=== PATIENT | female | born 1940 | race Asian ===

== ENCOUNTER 2016-10-09 09:26 | Outpatient (CLI) | payer OTHER ==
[~2016-10-09 09:26] MED LIST: ACET-655 PO; ACET7.5T70 PO; ALLO300T23 PO; ATEN50TA36 PO; BENZ100C8 PO; CARB25TA29 PO; CEFD300C2 PO; CYCL10TA35 PO; FLUT0.05 NAS; GABA300C2 PO; HYDROCHLOROT50 MG PO; LEVO0.0218 PO; MOBIC7.5 M1 PO; MUCINEX600 MG OR; NEXIUM40 M1 PO; RANI150T78 PO; SIMV40TA57 PO; TRAM50TA PO
[2016-10-09 09:39] LABS: PLATELET COUNT 216 K/uL (152-353)
[2016-10-09 09:54] LABS: POTASSIUM 4.2 mmol/L (3.6-5.2); SODIUM 134 mmol/L (136-145)
== END 2016-10-09 19:20 | disposition home or self-care (01) ==
LOC: LABW 09:26
PROVIDERS: Specialist
DX: Z01.818 Encounter for other preprocedural examination (principal)
CPT/HCPCS: 36415; 80053; 85027

== ENCOUNTER 2016-12-21 13:22 | Outpatient (CLI) | payer OTHER ==
[2016-12-21 13:48] LABS: PLATELET COUNT 200 K/uL (152-353)
[2016-12-21 14:25] LABS: POTASSIUM 4.4 mmol/L (3.6-5.2); SODIUM 138 mmol/L (136-145)
== END 2016-12-21 21:06 | disposition home or self-care (01) ==
LOC: LAB 13:22
PROVIDERS: Nurse Practitioner Family
DX: I25.10 Atherosclerotic heart disease of native coronary artery without angina pectoris (principal); I10 Essential (primary) hypertension; E78.5 Hyperlipidemia, unspecified; E03.9 Hypothyroidism, unspecified; Z79.899 Other long term (current) drug therapy
CPT/HCPCS: 80053; 80061; 83036; 84439; 84443; 85027

== ENCOUNTER 2017-01-30 12:19 | Outpatient (CLI) | payer OTHER ==
[2017-01-30 12:43] LABS: PLATELET COUNT 254 K/uL (152-353)
[2017-01-30 13:41] LABS: POTASSIUM 4.6 mmol/L (3.6-5.2); SODIUM 136 mmol/L (136-145)
== END 2017-01-30 19:09 | disposition home or self-care (01) ==
LOC: LAB 12:19
PROVIDERS: Nurse Practitioner Family
DX: E78.5 Hyperlipidemia, unspecified (principal); Z79.899 Other long term (current) drug therapy; I10 Essential (primary) hypertension; I25.10 Atherosclerotic heart disease of native coronary artery without angina pectoris; E03.9 Hypothyroidism, unspecified
CPT/HCPCS: 80053; 80061; 82306; 82607; 83036; 84439; 84443; 85027

== ENCOUNTER 2017-08-13 08:51 | Outpatient (CLI) | payer OTHER | END 2017-08-13 10:00 | disposition home or self-care (01) | LOC: MAMMO 08:51 | DX: Z12.31 Encounter for screening mammogram for malignant neoplasm of breast (principal) ==

== ENCOUNTER 2017-09-11 08:52 | Outpatient (CLI) | payer OTHER | END 2017-09-11 19:24 | disposition home or self-care (01) | LOC: MAMMO 08:52 | DX: R92.8 Other abnormal and inconclusive findings on diagnostic imaging of breast (principal) ==

== ENCOUNTER 2017-09-29 19:28 | Outpatient (CLI) | payer OTHER ==
[2017-09-30] MEDS ORDERED: CLOPIDOGREL75 MG PO (01:04)
[2017-09-30] MEDS ORDERED: MAGNESIUM400 M1 PO (01:05)
[2017-09-30] MEDS ORDERED: PACERONE200 MG PO (01:06)
[2017-09-30] MEDS ORDERED: K-TAB20 MEQ PO (01:06)
[2017-09-30] MEDS ORDERED: AMLO2.5T PO (01:07)
[2017-09-30] MEDS ORDERED: COZAAR100 MG PO (01:08)
[2017-09-30] MEDS ORDERED: CARV12.5 PO (01:08)
[2017-09-30] MEDS ORDERED: TRAM50TA PO (01:11)
[2017-09-30] MEDS ORDERED: TYLENOL #4 (01:14)
== END 2017-09-29 19:33 | disposition short-term general hospital (02) ==
LOC: AMB 19:28
DX: M25.511 Pain in right shoulder (principal); M25.552 Pain in left hip; W01.0XXA Fall on same level from slipping, tripping and stumbling without subsequent striking against object, initial encounter; Y92.091 Bathroom in other non-institutional residence as the place of occurrence of the external cause
CPT/HCPCS: A0425; A0427

== ENCOUNTER 2017-09-29 19:38 | Inpatient (IN) | payer OTHER ==
[~2017-09-29] VITALS: Ht 162.6 cm; Wt 103.0 kg
[2017-09-29 19:44] VITALS: BP 140/92; TEMP 99.5
[2017-09-30 00:50] VITALS: BP 156/56; TEMP 98.9
[2017-09-30] MEDS ORDERED: CLOPIDOGREL75 MG PO (01:04)
[2017-09-30] MEDS ORDERED: MAGNESIUM400 M1 PO (01:05)
[2017-09-30] MEDS ORDERED: K-TAB20 MEQ PO (01:06)
[2017-09-30] MEDS ORDERED: PACERONE200 MG PO (01:06)
[2017-09-30] MEDS ORDERED: AMLO2.5T PO (01:07)
[2017-09-30] MEDS ORDERED: CARV12.5 PO (01:08)
[2017-09-30] MEDS ORDERED: COZAAR100 MG PO (01:08)
[2017-09-30] MEDS ORDERED: TRAM50TA PO (01:11)
[2017-09-30] MEDS ORDERED: TYLENOL #4 (01:14)
[2017-09-30 03:53] VITALS: BP 151/55; TEMP 99.1; Ht 162.6 cm; Wt 103.0 kg
[2017-09-30 08:00] VITALS: BP 171/74; TEMP 98.7
[2017-09-30 10:28] LABS: PLATELET COUNT 223 K/uL (152-353)
[2017-09-30 10:53] LABS: POTASSIUM 3.7 mmol/L (3.6-5.2); SODIUM 136 mmol/L (136-145)
[2017-09-30 12:00] VITALS: BP 148/62; TEMP 98.7
[2017-09-30 16:00] VITALS: BP 122/59; TEMP 98.3
[2017-09-30 20:00] VITALS: BP 108/40; TEMP 98.3
[2017-10-01] VITALS: BP 98/47; TEMP 98.7
[2017-10-01 04:00] VITALS: BP 102/42; TEMP 98.7
[2017-10-01 07:51] VITALS: BP 125/59; TEMP 99
[2017-10-01 08:43] LABS: PLATELET COUNT 196 K/uL (152-353)
[2017-10-01 08:56] LABS: POTASSIUM 3.9 mmol/L (3.6-5.2)
[2017-10-01 12:00] VITALS: BP 103/48; TEMP 97.9
[2017-10-01 15:55] VITALS: BP 122/50; TEMP 97.2
[2017-10-01 20:09] VITALS: BP 121/52; TEMP 98.3
[2017-10-02] VITALS: BP 137/74; TEMP 98.7
[2017-10-02 04:00] VITALS: BP 145/54; TEMP 98.4
[2017-10-02 04:44] LABS: PLATELET COUNT 230 K/uL (152-353)
[2017-10-02 08:00] VITALS: BP 137/56; TEMP 97.6
[2017-10-02 12:19] VITALS: BP 139/70; TEMP 98.5
[2017-10-02 16:01] VITALS: BP 135/71; TEMP 99.7
[2017-10-02 20:00] VITALS: BP 125/54; TEMP 99
[2017-10-03] VITALS: BP 135/52; TEMP 99.5
[2017-10-03 03:48] LABS: PLATELET COUNT 294 K/uL (152-353)
[2017-10-03 04:00] VITALS: BP 129/47; TEMP 98.9
[2017-10-03 05:46] LABS: POTASSIUM 3.9 mmol/L (3.6-5.2); SODIUM 131 mmol/L (136-145)
[2017-10-03 08:00] VITALS: BP 181/76; TEMP 98.7
[2017-10-03 12:00] VITALS: BP 147/57; TEMP 97.5
[2017-10-03 16:00] VITALS: BP 151/61; TEMP 99.6
[2017-10-03 20:00] VITALS: BP 155/62; TEMP 99
[2017-10-04] VITALS: BP 138/51; TEMP 99.2
[2017-10-04 04:00] VITALS: BP 127/48; TEMP 98.8
[2017-10-04 05:52] LABS: PLATELET COUNT 227 K/uL (152-353)
[2017-10-04 05:53] LABS: POTASSIUM 4.1 mmol/L (3.6-5.2); SODIUM 132 mmol/L (136-145)
[2017-10-04 08:00] VITALS: BP 98/49; TEMP 98.6
[2017-10-04 12:00] VITALS: BP 166/71; TEMP 98.8
== END 2017-10-04 14:01 | disposition home or self-care (01) | DRG 605 ==
LOC: ED 19:38 → MED/SURG 23:54
PROVIDERS: Emergency Medicine; Internal Medicine; ADMIT Specialist
DX: S50.02XA Contusion of left elbow, initial encounter (principal); M84.459 Pathological fracture, hip, unspecified; W19.XXXA Unspecified fall, initial encounter; Z91.81 History of falling; Y93.89 Activity, other specified; Y92.89 Other specified places as the place of occurrence of the external cause; M19.011 Primary osteoarthritis, right shoulder; I10 Essential (primary) hypertension; M25.552 Pain in left hip; D64.89 Other specified anemias; K21.9 Gastro-esophageal reflux disease without esophagitis; E03.8 Other specified hypothyroidism; A08.8 Other specified intestinal infections; E83.52 Hypercalcemia; K76.0 Fatty (change of) liver, not elsewhere classified
CPT/HCPCS: 36415; 80048; 80053; 80076; 81000; 82140; 82570; 82607; 82747; 82948; 83540; 84300; 84443; 85027; 85651; 87086; 87088; 96365; 96366; 96372; 96374; 96375; 99283; J1650; J1885; J2360

== ENCOUNTER 2017-10-09 13:53 | Outpatient (CLI) | payer OTHER ==
[~2017-10-09 13:53] MED LIST changes: +AMLO2.5T PO; +CARV12.5 PO; +CLOPIDOGREL75 MG PO; +COZAAR100 MG PO; +K-TAB20 MEQ PO; +MAGNESIUM400 M1 PO; +PACERONE200 MG PO; +TYLENOL #4
[2017-10-09 14:37] LABS: PLATELET COUNT 389 K/uL (152-353)
[2017-10-09 15:17] LABS: POTASSIUM 4.5 mmol/L (3.6-5.2); SODIUM 133 mmol/L (136-145)
== END 2017-10-09 19:10 | disposition home or self-care (01) ==
LOC: LAB 13:53
PROVIDERS: Nurse Practitioner Family
DX: Z79.899 Other long term (current) drug therapy (principal); Z51.81 Encounter for therapeutic drug level monitoring; E78.4 Other hyperlipidemia; I10 Essential (primary) hypertension; I25.10 Atherosclerotic heart disease of native coronary artery without angina pectoris; E03.8 Other specified hypothyroidism
CPT/HCPCS: 80053; 80061; 83036; 84436; 84443; 85027

== ENCOUNTER 2017-10-10 12:07 | Outpatient (CLI) | payer OTHER ==
[2017-10-10 12:31] LABS: PLATELET COUNT 427 K/uL (152-353)
[2017-10-10 13:02] LABS: POTASSIUM 4.4 mmol/L (3.6-5.2); SODIUM 134 mmol/L (136-145)
== END 2017-10-10 19:40 | disposition home or self-care (01) ==
LOC: LAB 12:07
PROVIDERS: Nurse Practitioner Family
DX: R79.89 Other specified abnormal findings of blood chemistry (principal); R60.0 Localized edema; Z79.899 Other long term (current) drug therapy; R94.5 Abnormal results of liver function studies
CPT/HCPCS: 80053; 80074; 83880; 85027

== ENCOUNTER → 2017-10-24 13:19 | Outpatient (CLI) | payer OTHER | END | disposition home or self-care (01) | LOC: LABW 13:19 | DX: R74.8 Abnormal levels of other serum enzymes (principal); R19.7 Diarrhea, unspecified; I10 Essential (primary) hypertension; E78.00 Pure hypercholesterolemia, unspecified; E66.01 Morbid (severe) obesity due to excess calories | CPT/HCPCS: 87015; 87045; 87324; 87328; 87329; 87449; 87899 ==

== ENCOUNTER 2017-10-25 09:38 | Outpatient (CLI) | payer OTHER | END 2017-10-25 10:40 | disposition home or self-care (01) | LOC: US 09:38 | DX: R74.8 Abnormal levels of other serum enzymes (principal); R19.7 Diarrhea, unspecified; I10 Essential (primary) hypertension; E78.00 Pure hypercholesterolemia, unspecified; E66.01 Morbid (severe) obesity due to excess calories | CPT/HCPCS: 36415; 80076; 83516; 83540; 83550; 86039; 86225; 86235 ==

== ENCOUNTER 2018-03-14 07:33 | Outpatient (CLI) | payer OTHER ==
[2018-03-14 08:14] LABS: PLATELET COUNT 245 K/uL (152-353)
== END 2018-03-14 19:24 | disposition home or self-care (01) ==
LOC: LABW 07:33
PROVIDERS: Nurse Practitioner Family
DX: M32.8 Other forms of systemic lupus erythematosus (principal); R06.09 Other forms of dyspnea; R31.29 Other microscopic hematuria; R53.1 Weakness
CPT/HCPCS: 36415; 80053; 81374; 85027

== ENCOUNTER 2018-03-20 09:07 | Outpatient (CLI) | payer OTHER | END 2018-03-20 19:20 | disposition home or self-care (01) | LOC: LABW 09:07 | DX: Z79.899 Other long term (current) drug therapy (principal); Z51.81 Encounter for therapeutic drug level monitoring; I48.0 Paroxysmal atrial fibrillation | CPT/HCPCS: 36415; 80076; 84436; 84443; 84479 ==

== ENCOUNTER 2018-04-18 07:37 | Outpatient (CLI) | payer OTHER | END 2018-04-18 22:45 | disposition home or self-care (01) | LOC: NM 07:37 | DX: E21.2 Other hyperparathyroidism (principal) | CPT/HCPCS: A9500 ==

== ENCOUNTER 2018-05-16 08:28 | Outpatient (CLI) | payer OTHER ==
[2018-05-16 10:13] LABS: PLATELET COUNT 229 K/uL (152-353)
[2018-05-16 10:36] LABS: POTASSIUM 4.5 mmol/L (3.6-5.2)
== END 2018-05-16 21:12 | disposition home or self-care (01) ==
LOC: LABW 08:28
PROVIDERS: Internal Medicine
DX: E83.52 Hypercalcemia (principal); I10 Essential (primary) hypertension; E03.4 Atrophy of thyroid (acquired); E66.09 Other obesity due to excess calories; Z78.0 Asymptomatic menopausal state; E55.9 Vitamin D deficiency, unspecified
CPT/HCPCS: 36415; 80053; 80061; 82248; 82306; 82330; 82570; 82652; 83735; 83970; 84100; 84439; 84443; 85027

== ENCOUNTER 2018-05-28 08:53 | Outpatient (CLI) | payer OTHER | END 2018-05-28 23:46 | disposition home or self-care (01) | LOC: RAD 08:53 | DX: M85.89 Other specified disorders of bone density and structure, multiple sites (principal) ==

== ENCOUNTER 2018-05-29 09:20 | Outpatient (CLI) | payer OTHER ==
[2018-05-29 09:52] LABS: POTASSIUM 3.9 mmol/L (3.6-5.2)
== END 2018-05-29 23:53 | disposition home or self-care (01) ==
LOC: LABW 09:20
PROVIDERS: Nurse Practitioner Adult Health
DX: E78.2 Mixed hyperlipidemia (principal); Z79.899 Other long term (current) drug therapy; E83.52 Hypercalcemia; E03.4 Atrophy of thyroid (acquired); E66.09 Other obesity due to excess calories; Z78.0 Asymptomatic menopausal state; I10 Essential (primary) hypertension
CPT/HCPCS: 36415; 80053; 80061; 82248; 82340; 82570

== ENCOUNTER 2018-06-05 13:37 | Outpatient (CLI) | payer OTHER | END 2018-06-05 19:35 | disposition home or self-care (01) | LOC: LABW 13:37 | DX: R19.7 Diarrhea, unspecified (principal) | CPT/HCPCS: 82705; 87205; 87324; 87328; 87329; 87449 ==

== ENCOUNTER 2018-07-22 15:30 | Outpatient (CLI) | payer OTHER ==
[2018-07-23] MEDS ORDERED: ARAVA PO (10:58)
[2018-07-23] MEDS ORDERED: URSODIOL500 MG PO (10:58)
[2018-07-23] MEDS ORDERED: ACIPHEX20 MG PO (10:59)
== END 2018-07-22 19:56 | disposition home or self-care (01) ==
LOC: LABW 15:30
DX: D89.89 Other specified disorders involving the immune mechanism, not elsewhere classified (principal); M32.8 Other forms of systemic lupus erythematosus; R53.1 Weakness; R70.0 Elevated erythrocyte sedimentation rate; R76.0 Raised antibody titer
CPT/HCPCS: 36415; 82784; 83883; 84165; 86335

== ENCOUNTER 2018-07-23 10:29 | Outpatient (CLI) | payer OTHER ==
[2018-07-23] MEDS ORDERED: URSODIOL500 MG PO (10:58)
[2018-07-23] MEDS ORDERED: ARAVA PO (10:58)
[2018-07-23] MEDS ORDERED: ACIPHEX20 MG PO (10:59)
== END 2018-07-23 10:33 | disposition short-term general hospital (02) ==
LOC: AMB 10:29
DX: R09.2 Respiratory arrest (principal)
CPT/HCPCS: A0425; A0427

== ENCOUNTER 2018-07-23 10:36 | Emergency (ER) | payer OTHER ==
[~2018-07-23] VITALS: Ht 167.6 cm; Wt 113.4 kg
[2018-07-23 10:40] VITALS: TEMP 96.8
[2018-07-23] MEDS ORDERED: URSODIOL500 MG PO (10:58)
[2018-07-23] MEDS ORDERED: ARAVA PO (10:58)
[2018-07-23] MEDS ORDERED: ACIPHEX20 MG PO (10:59)
[2018-07-23 11:56] LABS: PLATELET COUNT 209 K/uL (152-353)
[2018-07-23 12:05] LABS: POTASSIUM 3.8 mmol/L (3.6-5.2)
[2018-07-23 13:15] VITALS: BP 163/78
== END 2018-07-23 13:25 | disposition home or self-care (01) ==
LOC: ED 10:36
PROVIDERS: Family Medicine
DX: R55 Syncope and collapse (principal)
CPT/HCPCS: 80053; 81000; 83880; 84484; 85027; 93005; 99283

== ENCOUNTER 2018-10-02 10:09 | Outpatient (CLI) | payer OTHER ==
[~2018-10-02 10:09] MED LIST changes: +ACIPHEX20 MG PO; +ARAVA PO; +URSODIOL500 MG PO
[2018-10-02 11:04] LABS: POTASSIUM 4.3 mmol/L (3.6-5.2)
== END 2018-10-02 21:34 | disposition home or self-care (01) ==
LOC: LABW 10:09
PROVIDERS: Internal Medicine
DX: E83.52 Hypercalcemia (principal); E03.4 Atrophy of thyroid (acquired); E66.09 Other obesity due to excess calories; Z78.0 Asymptomatic menopausal state; I10 Essential (primary) hypertension
CPT/HCPCS: 36415; 80053; 82248; 83970

== ENCOUNTER 2018-10-28 15:43 | Outpatient (CLI) | payer OTHER | END 2018-10-28 19:22 | disposition home or self-care (01) | LOC: LABW 15:43 | DX: Z79.899 Other long term (current) drug therapy (principal) | CPT/HCPCS: 36415; 80076; 84436; 84443; 84479 ==

== ENCOUNTER 2019-02-10 15:55 | Outpatient (CLI) | payer OTHER | END 2019-02-10 22:49 | disposition home or self-care (01) | LOC: LABW 15:55 | DX: R79.89 Other specified abnormal findings of blood chemistry (principal); R94.5 Abnormal results of liver function studies | CPT/HCPCS: 36415; 81256 ==

== ENCOUNTER 2019-03-18 08:41 | Outpatient (CLI) | payer OTHER | END 2019-03-18 19:00 | disposition home or self-care (01) | LOC: US 08:41 | DX: K76.0 Fatty (change of) liver, not elsewhere classified (principal); R74.8 Abnormal levels of other serum enzymes; I10 Essential (primary) hypertension ==

== ENCOUNTER 2019-03-24 11:47 | Outpatient (CLI) | payer OTHER | END 2019-03-24 23:25 | disposition home or self-care (01) | LOC: LABW 11:47 | PROVIDERS: Internal Medicine Gastroenterology | DX: I25.10 Atherosclerotic heart disease of native coronary artery without angina pectoris (principal); E78.2 Mixed hyperlipidemia; Z79.899 Other long term (current) drug therapy; K76.0 Fatty (change of) liver, not elsewhere classified; R74.8 Abnormal levels of other serum enzymes; I10 Essential (primary) hypertension | CPT/HCPCS: 36415; 80061; 80076; 84443 ==

== ENCOUNTER 2019-03-25 15:28 | Outpatient (CLI) | payer OTHER ==
[2019-03-25 16:16] LABS: PLATELET COUNT 205 K/uL (152-353)
[2019-03-25 16:17] LABS: POTASSIUM 3.8 mmol/L (3.6-5.2)
== END 2019-03-25 19:49 | disposition home or self-care (01) ==
LOC: LABW 15:28
PROVIDERS: Internal Medicine Medical Oncology
DX: D47.2 Monoclonal gammopathy (principal)
CPT/HCPCS: 36415; 80053; 85027

== ENCOUNTER 2019-03-27 16:41 | Outpatient (CLI) | payer OTHER | END 2019-03-27 20:15 | disposition home or self-care (01) | LOC: LAB 16:41 | DX: D47.2 Monoclonal gammopathy (principal); K76.0 Fatty (change of) liver, not elsewhere classified; R74.8 Abnormal levels of other serum enzymes; I10 Essential (primary) hypertension; R19.7 Diarrhea, unspecified | CPT/HCPCS: 82705; 83630; 83883; 86335; 87324; 87328; 87329; 87449 ==

== ENCOUNTER 2019-04-04 08:26 | Outpatient (CLI) | payer OTHER ==
[2019-04-04 09:53] LABS: PLATELET COUNT 219 K/uL (152-353)
[2019-04-04 18:19] LABS: POTASSIUM 3.7 mmol/L (3.6-5.2)
== END 2019-04-04 20:40 | disposition home or self-care (01) ==
LOC: LABW 08:26
PROVIDERS: Internal Medicine
DX: E83.52 Hypercalcemia (principal); E03.4 Atrophy of thyroid (acquired); I10 Essential (primary) hypertension; E66.09 Other obesity due to excess calories; Z78.0 Asymptomatic menopausal state; M32.8 Other forms of systemic lupus erythematosus; R76.0 Raised antibody titer; R94.5 Abnormal results of liver function studies
CPT/HCPCS: 36415; 80053; 81000; 82248; 82306; 82330; 82784; 83735; 83970; 84100; 84439; 84443; 85027; 86160; 86162; 86225; 86235

== ENCOUNTER 2019-05-05 07:40 | Outpatient (CLI) | payer OTHER ==
[2019-05-05 08:34] LABS: POTASSIUM 3.9 mmol/L (3.6-5.2)
== END 2019-05-05 23:17 | disposition home or self-care (01) ==
LOC: LABW 07:40
PROVIDERS: Specialist
DX: E78.2 Mixed hyperlipidemia (principal); Z79.899 Other long term (current) drug therapy; E83.52 Hypercalcemia; I10 Essential (primary) hypertension; E03.4 Atrophy of thyroid (acquired); E66.09 Other obesity due to excess calories; Z78.0 Asymptomatic menopausal state
CPT/HCPCS: 36415; 80053; 80061; 82248

== ENCOUNTER 2019-09-23 10:15 | Outpatient (CLI) | payer OTHER ==
[2019-09-23 11:29] LABS: POTASSIUM 5.5 mmol/L (3.6-5.2)
== END 2019-09-23 19:04 | disposition home or self-care (01) ==
LOC: LAB 10:15
PROVIDERS: Obstetrics & Gynecology Obstetrics
DX: I10 Essential (primary) hypertension (principal)
CPT/HCPCS: 80053

== ENCOUNTER 2019-09-26 11:54 | Outpatient (CLI) | payer OTHER ==
[2019-09-26 12:29] LABS: POTASSIUM 4.3 mmol/L (3.6-5.2)
[2019-09-26 12:34] LABS: PLATELET COUNT 293 K/uL (152-353)
== END 2019-09-26 22:40 | disposition home or self-care (01) ==
LOC: LAB 11:54
PROVIDERS: Nurse Practitioner Family
DX: I10 Essential (primary) hypertension (principal)
CPT/HCPCS: 80053; 85027

== ENCOUNTER 2019-10-10 11:25 | Outpatient (CLI) | payer OTHER ==
[2019-10-10 11:49] LABS: PLATELET COUNT 226 K/uL (152-353)
[2019-10-10 11:54] LABS: POTASSIUM 4.2 mmol/L (3.6-5.2)
== END 2019-10-10 16:00 | disposition home or self-care (01) ==
LOC: LAB 11:25
PROVIDERS: Nurse Practitioner Family
DX: D64.89 Other specified anemias (principal); R94.5 Abnormal results of liver function studies
CPT/HCPCS: 80053; 85027

== ENCOUNTER 2019-11-05 09:00 | Outpatient (CLI) | payer OTHER | END 2019-11-05 22:27 | disposition home or self-care (01) | LOC: LABW 09:00 | PROVIDERS: Nurse Practitioner Adult Health | DX: E78.2 Mixed hyperlipidemia (principal); Z79.899 Other long term (current) drug therapy | CPT/HCPCS: 36415; 80061; 80076; 84436; 84443; 84479 ==

== ENCOUNTER 2019-11-21 08:32 | Outpatient (CLI) | payer OTHER ==
[2019-11-21 09:55] LABS: POTASSIUM 4.4 mmol/L (3.6-5.2)
[2019-11-21 10:23] LABS: PLATELET COUNT 209 K/uL (152-353)
== END 2019-11-21 19:29 | disposition home or self-care (01) ==
LOC: LABW 08:32
PROVIDERS: Internal Medicine Medical Oncology
DX: D64.89 Other specified anemias (principal); D47.2 Monoclonal gammopathy; D64.9 Anemia, unspecified
CPT/HCPCS: 36415; 80053; 82728; 82784; 82785; 83540; 83550; 83883; 84165; 85027

== ENCOUNTER 2019-12-16 08:40 | Outpatient (CLI) | payer OTHER ==
[2019-12-16 10:10] LABS: PLATELET COUNT 216 K/uL (152-353)
== END 2019-12-16 19:34 | disposition home or self-care (01) ==
LOC: LAB 08:40
PROVIDERS: Nurse Practitioner Family
DX: E11.9 Type 2 diabetes mellitus without complications (principal); I10 Essential (primary) hypertension; E78.49 Other hyperlipidemia; R06.09 Other forms of dyspnea
CPT/HCPCS: 80053; 80061; 83036; 83880; 84439; 84443; 85027